=== PATIENT | female | born 1975 | race Caucasian/White ===

== ENCOUNTER 2017-10-28 09:03 | Day surgery (SDC) | payer BC ==
[2017-10-28] MEDS ORDERED: DIPRIVAN 200 MG/20 ML IV ONE (09:04)
[2017-10-28] MEDS ORDERED: LIDOCAINE HCL 1% AMPUL 5 ML IJ ONE (10:00)
[2017-10-28] MEDS ORDERED: DEXAMETHASONE 10 MG/ML VIAL PF ONE (10:00)
--- NOTE | 2017-10-28 11:43 | XRAY ---
17 seconds fluoroscopy time in surgery for L-5 JOANN.
--- NOTE | 2017-10-28 12:27 | XRAY ---
Indication: L5 JOANN. Intraoperative fluoroscopy was provided for 17 seconds. 4 digital spot images submitted for interpretation demonstrates a single posterior spinal needle tip projecting over the lumbosacral junction midline. Tiny amount of contrast injected for needle tip placement. Correlate with intraoperative findings/report.
--- NOTE | 2017-10-29 08:47 | OP ---
DATE OF PROCEDURE: 07/30/2017 1012 SURGEON: Emir Carr D.O. PREOPERATIVE DIAGNOSIS: Degenerative lumbar spine disease, lumbar spondylosis. POSTOPERATIVE DIAGNOSIS: Degenerative lumbar spine disease, lumbar spondylosis. PROCEDURES PERFORMED: Right L5 epidural steroid injection under fluoroscopic guidance. DESCRIPTION OF PROCEDURE: The patient was taken to the operating room and laid in the prone position on the table. Skin over the injection site was prepped and draped in sterile fashion. Under fluoroscope bony anatomy at the targeted injection site was visualized. Induction agent was given as per anesthesia while vital signs were monitored. Local anesthetic agent was introduced to anesthetize the skin in the subcutaneous tissue through injection site. Under fluoroscopic guidance a #22-gauge standard spinal needle was advanced into the target facet joint through an oblique approach. 1 cc of preservative free Decadron was injected into each of the target epidural space. While the needle was being removed normal saline was simultaneously infiltrated to avoid sterile needle tract. Skin was cleansed with alcohol and then a bandage was applied. After the procedure the pain level is 4 out of 10. Before the procedure the pain level is 8 out of 10. No complications or adverse consequences were observed. The patient was returned to the holding area until stabilized before discharge to home. The patient will be followed up within ten days after the injection for re-evaluation.
== END 2017-10-28 10:50 | disposition home or self-care (01) ==
LOC: SDC-PAIN 09:03
PROVIDERS: ATTEND Internal Medicine
DX: M51.16 Intervertebral disc disorders with radiculopathy, lumbar region (principal); M46.96 Unspecified inflammatory spondylopathy, lumbar region; M62.838 Other muscle spasm; Z79.891 Long term (current) use of opiate analgesic
CPT/HCPCS: 64483; 72020; 77003; 84703; J2704; Q9967; J1100

== ENCOUNTER 2018-12-22 09:37 | Day surgery (SDC) | payer BC ==
[2018-12-22] MEDS ORDERED: Depo-Medrol 40 MG/ML IM ONE (09:38)
[2018-12-22] MEDS ORDERED: Xylocaine-Mpf 2% 5 Ml Vial IJ ONE (09:38)
--- NOTE | 2018-12-22 11:59 | XRAY ---
Indication: Bilateral L4-S1 MBB. Intraoperative fluoroscopy was provided for 12 seconds. Single digital spot image submitted for interpretation demonstrates posterior needle tips projecting over the expected course of the left and right L4-S1 nerve roots. Correlate with intraoperative findings/report.
--- NOTE | 2018-12-22 12:02 | XRAY ---
12 seconds fluoroscopy time in surgery for bilateral L4-S1 MBB.
[2018-12-22] MEDS ORDERED: Lactated Ringers 1,000 ML IV ONE (13:30)
[2018-12-22] MEDS ORDERED: Ketamine HCl 50 MG/ML IV ONE (14:46)
[2018-12-22] MEDS ORDERED: DIPRIVAN 200 MG/20 ML IV ONE (14:46)
== END 2018-12-22 11:25 | disposition home or self-care (01) ==
LOC: SDC-PAIN 09:37
PROVIDERS: ATTEND Psychiatry & Neurology Pain Medicine
DX: M47.816 Spondylosis without myelopathy or radiculopathy, lumbar region (principal); M54.5 Low back pain; I10 Essential (primary) hypertension; E03.9 Hypothyroidism, unspecified; M19.90 Unspecified osteoarthritis, unspecified site; K21.9 Gastro-esophageal reflux disease without esophagitis; F41.8 Other specified anxiety disorders
CPT/HCPCS: 64493; 64494; 72020; 77002; 84703; J1030; J2704

== ENCOUNTER 2019-03-16 12:56 | Day surgery (SDC) | payer BC ==
[2019-03-16] MEDS ORDERED: Sodium Chloride 0.9(Preservative Free) 10 ML IJ ONE (12:57)
[2019-03-16] MEDS ORDERED: Depo-Medrol 40 MG/ML IM ONE (12:57)
[2019-03-16] MEDS ORDERED: Xylocaine 1% Vial 30 ML PF IJ ONE (12:57)
[2019-03-16] MEDS ORDERED: DIPRIVAN 200 MG/20 ML IV ONE (13:22)
[2019-03-16] MEDS ORDERED: Ketamine HCl 50 MG/ML ONE (13:22)
[2019-03-16] MEDS ORDERED: Lactated Ringers 1,000 ML IV ONE (13:22)
--- NOTE | 2019-03-16 14:51 | XRAY ---
Indication: Right L4-S1 JOANN. Intraoperative fluoroscopy was provided for 28 seconds. 2 digital spot images submitted for interpretation demonstrates posterior needle tips projecting over the expected course of the right L4-L5 nerve roots. Small amount of contrast injected for needle tip placement. Correlate with intraoperative findings/report.
--- NOTE | 2019-03-16 14:55 | XRAY ---
28 seconds fluoroscopy time in surgery for right L4-S1 JOANN.
== END 2019-03-16 14:12 | disposition home or self-care (01) ==
LOC: SDC-PAIN 12:56
PROVIDERS: ATTEND Psychiatry & Neurology Pain Medicine
DX: M54.16 Radiculopathy, lumbar region (principal); I10 Essential (primary) hypertension; E03.9 Hypothyroidism, unspecified; F41.8 Other specified anxiety disorders; Z79.899 Other long term (current) drug therapy
CPT/HCPCS: 64483; 64484; 72020; 77003; 84703; J1030; J2001; J2704; Q9966